=== PATIENT | female | born 1955 | race Caucasian/White ===

== ENCOUNTER → 2019-02-17 | Day surgery (SDC) | payer OTHER ==
--- OUTSIDE RECORDS SUMMARY | 2019-02-17 10:35 | XMS REPORT ---
:1955 [facility] Address [address] [place] [address] Care Team Providers Name Role Phone Unavailable Unavailable Unavailable Payers Payer Name Policy Type Policy Number Effective Date Expiration Date Problems This patient has no known problems. Allergies, Adverse Reactions, Alerts Allergy Allergy Status Severity Reaction(s) Onset Inactive Treating Comments Name Type Date Date Clinician adhesive DA Active SV 2017-02 00:00:0 0 Medications This patient has no known medications.
--- NOTE | 2019-02-17 12:28 | RAD REPORT ---
EXAM DESCRIPTION: Ultrasound-guided vacuum assisted right breast core biopsy x2 CLINICAL HISTORY: Breast mass C50.411, R92.8 COMPARISON: Breast Core BX Addtnl dated 02/17/2019 FINDINGS: Informed consent was obtained and time-out was performed. The patient's right breast was prepped and draped in the usual sterile fashion. 1% lidocaine was used for local anesthetic purposes. Pre procedure of outside mammography and sonographically of the right breast was performed. Two vague hypoechoic shadowing areas were noted at the approximate 10 o'clock position. A was deemed necessary to biopsy both areas based on the outside imaging and pre-procedure ultrasound. Utilizing aseptic te chnique and ultrasound guidance, a 12 gauge vacuum assisted core biopsy device was used to obtain 2 c ore specimens through each of the 2 areas of interest. A post biopsy clip was then placed. All collected material was sent for cytology. Patient tolerated procedure well. IMPRESSION: Successful ultrasound guided vacuum assisted right breast mass x2 biopsy.
--- NOTE | 2019-02-17 13:12 | RAD REPORT ---
EXAM DESCRIPTION: US - Breast Core BX Addtnl - 02/17/2019 12:07 pm CLINICAL HISTORY: Breast mass C50.411, R92.8 COMPARISON: Breast Core BX Addtnl dated 02/17/2019 FINDINGS: Informed consent was obtained and time-out was performed. The patient's right breast was prepped and draped in the usual sterile fashion. 1% lidocaine was used for local anesthetic purposes. Pre procedure of outside mammography and sonography of the right breast was performed. Two vague hypo echoic shadowing areas were noted at the approximate 10 o'clock position. It was deemed necessary to biopsy both areas based on the outside imaging and pre-procedure ultrasound. Utilizing aseptic techni que and ultrasound guidance, a 12 gauge vacuum assisted core biopsy device was used to obtain 2 core specimens through each of the 2 areas of interest. A post biopsy clip was then placed. All collected material was sent for cytology. Patient tolerated procedure well. IMPRESSION: Successful ultrasound guided vacuum assisted right breast mass x2 biopsy.
== END ==
LOC: DS 10:33
PROVIDERS: ATTEND Internal Medicine Hematology & Oncology
DX: N63.10 Unspecified lump in the right breast, unspecified quadrant (principal)
CPT/HCPCS: 19083; 19084; 88305